=== PATIENT | male | born 1965 | race Caucasian/White ===

== ENCOUNTER → 2016-10-27 | Outpatient (CLI) | payer MEDICAID ==
[2016-10-27 10:33] LABS: ALT 39 U/L (21-72); AST 25 U/L (17-59); Alkaline Phosphatase 55 U/L (38-126); Anion Gap 10 mmol/L; Blood Urea Nitrogen 28 mg/dL (9-20); Calcium 9.6 mg/dL (8.4-10.2); Carbon Dioxide 26 mmol/L (22-30); Chloride 106 mmol/L (98-107); Cholesterol 259 mg/dL (<200); Glucose 94 mg/dL (74-99); HDL Cholesterol 53 mg/dL (40-60); Non-African American GFR(MDRD) >60 (>60 ml/min/1.73 sqM); Potassium 4.7 mmol/L (3.5-5.1); Sodium 142 mmol/L (137-145); Total Bilirubin 0.8 mg/dL (0.2-1.3); Total Protein 7.3 g/dL (6.3-8.2); Triglycerides 123 mg/dL (<150)
[2016-10-27 13:52] LABS: Hemoglobin A1C 5.6 % (4.2-6.1)
== END ==
LOC: LABWHC1 07:33
PROVIDERS: ATTEND Family Medicine
DX: Z00.00 Encounter for general adult medical examination without abnormal findings (principal); Z13.1 Encounter for screening for diabetes mellitus; Z13.220 Encounter for screening for lipoid disorders; Z13.29 Encounter for screening for other suspected endocrine disorder; Z12.5 Encounter for screening for malignant neoplasm of prostate
CPT/HCPCS: 84439; 80061; 80053; 83036; 84443; 36415; G0103

== ENCOUNTER → 2017-10-19 | Outpatient (CLI) | payer MEDICAID ==
[2017-10-19 08:18] LABS: HCT 43.4 % (39.0-53.0); HGB 14.4 gm/dL (13.0-17.5); MCHC 33.2 g/dL (31.0-37.0); MCV 90.6 fL (80.0-100.0); Mean Platelet Volume 6.5; Platelet Count 222 k/uL (150-450); RBC 4.79 m/uL (4.30-5.90); RDW 13.2 % (11.5-15.5); WBC 5.3 k/uL (3.8-10.6)
[2017-10-19 08:45] LABS: ALT 29 U/L (21-72); AST 18 U/L (17-59); Albumin 4.4 g/dL (3.5-5.0); Alkaline Phosphatase 55 U/L (38-126); Anion Gap 10 mmol/L; Blood Urea Nitrogen 20 mg/dL (9-20); Calcium 9.3 mg/dL (8.4-10.2); Carbon Dioxide 26 mmol/L (22-30); Chloride 106 mmol/L (98-107); Cholesterol 227 mg/dL (<200); Glucose 100 mg/dL (74-99); HDL Cholesterol 44 mg/dL (40-60); LDL Cholesterol,Calculated 159 mg/dL (0-99); Potassium 4.6 mmol/L (3.5-5.1); Sodium 142 mmol/L (137-145); Total Bilirubin 0.6 mg/dL (0.2-1.3); Total Protein 7.1 g/dL (6.3-8.2); Triglycerides 122 mg/dL (<150)
== END | disposition home or self-care (01) ==
LOC: LABWHC1 07:55
PROVIDERS: ATTEND Internal Medicine
DX: Z00.00 Encounter for general adult medical examination without abnormal findings (principal); E78.00 Pure hypercholesterolemia, unspecified; E66.9 Obesity, unspecified; Z12.11 Encounter for screening for malignant neoplasm of colon
CPT/HCPCS: 36415; 80053; 80061; 84443; 85027

== ENCOUNTER 2017-11-19 23:22 | Emergency (ER) | payer MEDICAID ==
[2017-11-19 23:25] VITALS: RESP 18
[2017-11-19] MEDS ORDERED: PROPARACAINE 0.5% OPHTH DROPS 15 ML BTL LEFT EYE STA (23:29)
--- NOTE | 2017-11-20 00:16 | ED ---
Eye Problem HPI - General Chief complaint: Eye Problems Stated complaint: FB in eye Time Seen by Provider: 11/19/17 23:29 Source: patient, RN notes reviewed Mode of arrival: ambulatory Limitations: no limitations - History of Present Illness Initial comments: This is a 52-year-old male who presents to the emergency department with chief complaint of foreign body in the left eye. Patient states that at noon today he had a haircut. He states that he also had his eyebrows trimmed. Immediately after having his eyebrows trimmed, he felt a foreign body sensation in his left eye. He admits to associated blurriness but no vision loss. He reports foreign body sensation, tearing and states that his eye feels "scratchy. " He states that she has been unable to sleep due to the discomfort. Denies any significant pain with or without movement of the eye. Has no other complaints. 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 Denies weakness or vision loss. Denies fevers or chills, chest pain or shortness of breath, abdominal pain, nausea or vomiting, headache or dizziness. Denies blunt trauma. - Related Data Home Medications Medication Instructions Recorded Confirmed Aspirin 650 mg PO Q8H PRN 11/19/17 11/19/17 Allergies Allergy/AdvReac Type Severity Reaction Status Date / Time No Known Allergies Allergy Verified 11/19/17 23:34 Review of Systems ROS Statement: Those systems with pertinent positive or pertinent negative responses have been documented in the HPI. ROS Other: All systems not noted in ROS Statement are negative. Past Medical History Past Medical History: No Reported History History of Any Multi-Drug Resistant Organisms: None Reported Past Surgical History: No Surgical Hx Reported Additional Past Surgical History / Comment(s): tear duct tube Past Psychological History: No Psychological Hx Reported Smoking Status: Never smoker Past Alcohol Use History: Occasional Past Drug Use History: None Reported General Exam - General Exam Comments Initial Comments: General: Awake and alert, well-developed; in no apparent distress. HEENT: Head atraumatic, normocephalic. Right pupil is round and reactive to light. Left pupil is fixed, dilated and unreactive to light. Left conjunctiva is injected. Extraocular movements intact. No pain reported. On fluorescein staining, no foreign body, abrasions or ulcers noted. No foreign body noted with retraction of superior and inferior eyelids. Oropharynx moist without erythema or exudate. No facial drooping or weakness. Neck: Supple. Normal ROM. Cardiovascular: Regular rate and rhythm. No murmurs, rubs or gallops. Chest symmetrical. Respiratory: Lungs clear to auscultation bilaterally. No wheezes, rales or rhonchi. Normal respiratory effort with no use of accessory muscles. Musculoskeletal: Normal ROM, no tenderness bilateral upper and lower extremities. Ambulating normally. Skin: [place], warm and dry without rashes or lesions. Neurological: Alert and oriented x3. CN II-XII grossly intact. Speech is fluent and answers are appropriate. No focal neuro deficits. Psychiatric: Normal mood and affect. No overt signs of depression or anxiety noted. Limitations: no limitations Course Vital Signs 11/19/17 23:23 Temperature 97.3 F L Pulse Rate 63 Respiratory 18 Rate Blood Pressure 130/69 O2 Sat by Pulse 99 Oximetry Medical Decision Making - Medical Decision Making This is a 52-year-old male who presented to the emergency department with chief complaint of foreign body in the left eye. Patient stated he received a haircut at around noon yesterday and immediately felt a foreign body sensation in his left eye. He reported that his eye felt "scratchy," he had tearing, mild blurred vision and discomfort. 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 Patient did not bring these medications to the emergency department and is unsure of the ingredients. On physical assessment, patient's left conjunctiva is erythematous, the pupil is dilated and fixed and is unreactive to light. On fluorescein staining, no abrasions or ulcers are noted. No foreign body noted within the cornea or under superior or inferior eyelids. Intraocular pressure is 9 bilaterally. This case was discussed with resident, Dr. Singh as well as my attending physician Dr. Read. Both physicians evaluated the patient. Patient denied any headache or dizziness, weakness or significant pain of the eye. Denied vision loss. No ptosis noted and cranial nerves are fully intact. No focal neuro deficits. Patient denied any other symptoms and had no other complaints other than the foreign body sensation in his eye. My attending physician, Dr. Read was in contact with Dr. Resendez, pharmacist helper who recommended follow-up with him in the morning. I relayed this recommendation to patient who is very agitated because he waited a long time in the emergency department and has to work at 4 AM. He stated that he has his own doctor that he will follow-up with but his job is more of a priority than his health. Patient's vitals are stable and he is in no acute distress. He is discharged home at this time. Strongly advised follow-up with Dr. Resendez in the morning. All questions answered. Disposition Clinical Impression: Persistent mydriasis Disposition: HOME SELF-CARE Condition: Good Instructions: Eye Foreign Body (ED) Additional Instructions: Please follow-up with Dr. Resendez, pharmacist helper, tomorrow morning. Please follow up with primary care provider within 1-2 days. Return to emergency department if symptoms should worsen or any concerns arise. Referrals: None,Stated [Primary Care Provider] - 1-2 days Neil Resendez MD [STAFF PHYSICIAN] - 1-2 days Time of Disposition: 01:09
[2017-11-20 01:19] VITALS: BP 138/74; PULSE 60; TEMP 96.9
== END 2017-11-20 01:19 | disposition home or self-care (01) ==
LOC: EC 23:22
DX: H57.04 Mydriasis (principal)
CPT/HCPCS: 99283

== ENCOUNTER → 2018-10-18 | Outpatient (CLI) | payer MEDICAID ==
[2018-10-18 09:50] LABS: Basophils % (A) 1 %; Eosinophils # (A) 0.1 k/uL (0-0.7); Eosinophils % (A) 4 %; HCT 43.5 % (39.0-53.0); HGB 14.4 gm/dL (13.0-17.5); Lymphocytes # (A) 1.3 k/uL (1.0-4.8); Lymphocytes % (A) 35 %; MCH 29.9 pg (25.0-35.0); MCHC 33.1 g/dL (31.0-37.0); MCV 90.3 fL (80.0-100.0); Mean Platelet Volume 6.5; Monocytes # (A) 0.2 k/uL (0-1.0); Monocytes % (A) 5 %; Neutrophils # (A) 1.9 k/uL (1.3-7.7); Neutrophils % (A) 54 %; Platelet Count 232 k/uL (150-450); RBC 4.82 m/uL (4.30-5.90); RDW 13.6 % (11.5-15.5); WBC 3.6 k/uL (3.8-10.6)
[2018-10-18 17:33] LABS: Anion Gap 6.3 mmol/L (4.00-12.00); Calcium 9.4 mg/dL (8.7-10.3); Carbon Dioxide 28.7 mmol/L (21.6-31.8); Potassium 4.8 mmol/L (3.5-5.5)
== END ==
LOC: LABWHC1 09:11
PROVIDERS: ATTEND Family Medicine
DX: Z00.00 Encounter for general adult medical examination without abnormal findings (principal)
CPT/HCPCS: 36415; 80048; 80061; 84153; 84450; 84460; 85025

== ENCOUNTER → 2020-04-08 | Outpatient (CLI) | payer MEDICAID, OTHER ==
--- NOTE | 2020-04-08 13:46 | XR ---
EXAMINATION TYPE: XR chest 2V DATE OF EXAM: 04/08/2020 COMPARISON: NONE HISTORY: Shortness of breath TECHNIQUE: Frontal and lateral views of the chest are obtained. FINDINGS: Scattered senescent parenchymal changes noted. Hyperinflation compatible with COPD. No evidence for infiltrate. No evidence for atelectasis. Heart size is stable. Mediastinal structures are stable and grossly unremarkable. No evidence for hilar prominence. Degenerative changes dorsal spine. IMPRESSION: 1. No evidence for acute pulmonary disease.
[2020-04-08 14:35] LABS: HCT 43.7 % (39.0-53.0); HGB 14.6 gm/dL (13.0-17.5); MCHC 33.4 g/dL (31.0-37.0); MCV 89.8 fL (80.0-100.0); Mean Platelet Volume 7.2; Platelet Count 247 k/uL (150-450); RBC 4.86 m/uL (4.30-5.90); RDW 13.4 % (11.5-15.5); WBC 4.7 k/uL (3.8-10.6)
[2020-04-08 14:39] LABS: Appearance,Urine Clear (Clear); Bilirubin,Urine Negative (Negative); Blood,Urine Negative (Negative); Color,Urine Light Yellow; Glucose,Urine (UA) Negative (Negative); Ketones,Urine 1+ (Negative); Leukocyte Esterase,Urine Negative (Negative); Nitrite,Urine Negative (Negative); PH, Urine 5.5 (5.0-8.0); Protein,Urine Negative (Negative); Specific Gravity,Urine 1.007 (1.001-1.035); Urobilinogen,Urine <2.0 mg/dL (<2.0)
[2020-04-08 19:55] LABS: African American GFR (CKD) 97.1 (60.0-200.0); Albumin/Globulin Ratio 2.27 (1.60-3.17); Anion Gap 10.8 mmol/L (4.00-12.00); Calcium 10.1 mg/dL (8.7-10.3); Carbon Dioxide 25.2 mmol/L (21.6-31.8); Globulin 2.2 g/dL (1.6-3.3); Non-African American GFR(CKD) 83.8 (60.0-200.0); Potassium 4.2 mmol/L (3.5-5.5); Total Bilirubin 0.8 mg/dL (0.3-1.2); Total Protein 7.2 g/dL (6.2-8.2)
[2020-04-08 23:53] LABS: Partial Thromboplastin Time 30.3 sec (24.7-29.9); Prothrombin Time 10.7 sec (9.9-11.9)
== END | disposition home or self-care (01) ==
LOC: LABWHC1 13:24
PROVIDERS: ATTEND Orthopaedic Surgery Orthopaedic Surgery of the Spine
DX: M51.16 Intervertebral disc disorders with radiculopathy, lumbar region (principal); M51.26 Other intervertebral disc displacement, lumbar region; M51.36 Other intervertebral disc degeneration, lumbar region; M79.10 Myalgia, unspecified site; M79.605 Pain in left leg
CPT/HCPCS: 36415; 71046; 80053; 81003; 85027; 85610; 85730; 93005

== ENCOUNTER → 2021-06-02 | Outpatient (CLI) | payer OTHER ==
--- NOTE | 2021-06-02 10:26 | XR ---
EXAMINATION TYPE: XR lumbar spine with bend/flex DATE OF EXAM: 06/02/2021 COMPARISON: None HISTORY: Low back pain TECHNIQUE: 5V lumbar spine supplemented with flexion and extension views. FINDINGS: There appear to be 6 lumbar type vertebral bodies. There appears to be lumbarization of S1. No spondylolytic defects are evident. Mild diffuse facet changes may be present. Spondylosis is pres ent. Vertebral body heights are preserved. L2-3: There appears to be narrowing of the disc height with vacuum disc phenomenon. Posterior disc space narrowing is present L3-4 L4-5 and L5-S1. Flexion and extension views are obtained. The vertebral body alignment appears preserved through flex ion and extension. IMPRESSION: 1. 6 lumbar type vertebral bodies. S1 may be transitional. Plain film correlation is recommended kayleen or to surgery. 2. Degenerative disc change L2-3 with vacuum disc phenomenon and loss of disc height. Milder posterio r disc degenerative changes are present through the mid and lower lumbar spine.
== END | disposition home or self-care (01) ==
LOC: RADXRMAIN 09:38
PROVIDERS: ATTEND Family Medicine
DX: M47.816 Spondylosis without myelopathy or radiculopathy, lumbar region (principal)
CPT/HCPCS: 72114

== ENCOUNTER → 2021-07-21 | Outpatient (CLI) | payer OTHER ==
--- NOTE | 2021-07-21 10:10 | MR ---
EXAMINATION TYPE: MR lumbar spine wo/w con DATE OF EXAM: 07/21/2021 COMPARISON: Lumbar spine x-ray June 02, 2021 HISTORY: Lumbago w/sciatica TECHNIQUE: Multiplanar, multisequence images of the lumbar spine is performed without and with IV contrast, util izing 10 mL intravenous Gadavist FINDINGS: Sagittal images of the lumbar spine show vertebral body heights to appear satisfactory. Sli ght multilevel spondylolisthesis or grade 1 retrolisthesis throughout the lumbar spine. Multilevel di sc desiccation. Moderate disc space narrowing L1-L2 level with heterogeneous Modic type II endplate c hanges. Mild to moderate multilevel anterior spurring greatest at L1 -L2 levels. No suspicious postco ntrast enhancement. Axial images at T12-L1 level show mild broad disc bulge mildly effacing the anterior thecal sac. Ther e are mild facet degenerative changes bilaterally. Patent bilateral neural foramina. Axial images at the L1-L2 level show mild to moderate broad disc bulge and zbix-eh-ulpstcgp facet deg enerative changes bilaterally. There is moderate right and mild left-sided anterior inferior neural f oraminal narrowing. Axial images at the L2-L3 level show cnyq-io-zzcehgma facet arthropathy bilaterally. There is mild br oad disc bulge mildly effacing the anterior thecal sac. There is tpmo-jb-bldzvdzw bilateral anterior inferior neural foraminal narrowing. Axial images at the L3-L4 level show mild to moderate broad disc bulge. There is some effacement of t he anterior thecal sac. There is fovs-cq-ttmjyvfr bilateral anterior inferior neural foraminal narrow ing. Axial images at the L4-L5 level show mild to moderate broad disc bulge and mild facet arthropathy leopoldo aterally. There is moderate left-sided and mild right-sided neural foraminal narrowing. Axial images at the L5-S1 level show hutw-yz-rdbeubvf facet arthropathy bilaterally. Patent bilateral neural foramina. No suspicious retroperitoneal findings. Paraspinal muscle bulk is preserved. IMPRESSION: Changing of the lumbar spine with sryc-cq-emstfloo multilevel degenerative changes as det tali above.
== END | disposition home or self-care (01) ==
LOC: RADMRIMAIN 07:16
PROVIDERS: ATTEND Family Medicine
DX: M51.16 Intervertebral disc disorders with radiculopathy, lumbar region (principal); M47.27 Other spondylosis with radiculopathy, lumbosacral region; M99.73 Connective tissue and disc stenosis of intervertebral foramina of lumbar region
CPT/HCPCS: 72158; A9585

== ENCOUNTER → 2021-10-16 | Outpatient (CLI) | payer OTHER ==
[2021-10-16 08:10] VITALS: BP 140/99; PULSE 59; RESP 18; TEMP 98.2
--- NOTE | 2021-10-16 08:34 | P.CON ---
Consult Note - . Consult date: 10/16/21 Assessment/Plan:: HISTORY OF PRESENT ILLNESS: 56 -year-old male as a referral from Dr. Martinez presents today with lower back pain due to DDD, retrolisthesis, bilateral neuroforaminal stenoses and facet arthropathy for evaluation. Patient states he has 8 out of 10 lower back pain, centrally located in the lumbar spine, dull, achy, waxes and wanes in intensity with activity with occasional radiation to the left lower extremity with accompanying numbness. Pain is provoked with bending, heavy lifting. Pain is relieved by medications, topical Biofreeze gel, heat, physical therapy in March 2020, chiropractic treatments every 2 weeks, home daily exercise regimen and sleeping. Past Medical History: No Reported History Past Surgical History: Lumbar Laminectomy, Tear duct tube incision Social History: No Tobacco use. Occassional ETOH use. No illicit drug use Family History: Denies All: NKDA Meds: See list REVIEW OF ORGAN SYSTEMS: CONSTITUTIONAL: No fevers or chills. No recent weight loss. HEENT: No visual acuity loss, eye pain, difficulties with hearing. No nosebleeds. No difficulty swallowing. RESPIRATORY: Denies any troubles with breathing or dyspnea on exertion. CARDIOVASCULAR: Denies any chest pain, palpitations, or recent heart attacks. GASTROINTESTINAL: Denies fatty food intolerance. Has change in bowel habits and gas bloat. GENITOURINARY: Denies any blood in urine. Has increased urinary frequency. NEUROLOGICAL: + numbness and tingling along the distal extremities. No seizure disorders or headaches. MUSCULOSKELETAL: + back pain SKIN: No skin cancer. No rash. PSYCHIATRIC: Denies current depression or suicidal thoughts. ENDOCRINE: Denies current thyroid disorders. Denies any blood sugar glucose intolerance. HEME/LYMPHATIC: Denies any lumps and bumps around the neck. History of deep venous thrombosis. ALLERGY/IMMUNOLOGY: No immunoglobulin therapy. No immune deficiencies. BREAST: Denies current breast lumps, pain or nipple discharge. Physical Examinations : Constitutional : Cooperative , not in acute distress . HEENT: Neck supple. No Lymphadenopathy. Normal thyroid size . Eyes no ptosis , no icterus, no photophobia . Hearing intact. Normal oropharynx. No Thrush. Respiratory : Chest clear to auscultations bilaterally. No wheezing. No rhonchi. Cardiovascular : Regular rate and rhythm , S1 / S2. No S3 . No S4. Gastrointestinal : Abdomen soft. No tenderness. Bowel sounds x 4. No organomegaly . Genitourinary : Deferred. Neurologic : Cranial nerve II to XII intact. No focal neurological deficits. Psychiatric : alert & oriented x 3. Matching mood & appropriate affect. Judgment & insight intact. Lymphatic No Lymphadenopathy. Musculoskeletal : Cervical Spine Motor strength in the deltoid and biceps: Normal right side. Normal Left side Motor strength biceps and the wrist extensors: Normal right side . Normal left side Motor strength in the triceps muscle: Normal right side. Normal left side Deep tendon reflexes: Normal at the biceps. Normal at Brachioradialis. Normal at triceps Cervical facet loading test: positive bilaterally Spurling test: positive bilaterally Neck distraction test: positive bilaterally Vanita sign: positive bilaterally Lumbar spine Well healed 2 1/2" vertical incisional scar Motor strength lower extremities ,thigh and legs 5/5 Right side , 5/5 Left side Deep tendon reflexes : Normal Knee Jerk. Normal Ankle Jerk Vertebral body tenderness over L4, L5 Lumbar facet Loading Test: positive Right / positive Left Range of motion of the lumbar spine Flexion 30 degrees, extension 10 degrees Straight Leg Raise test: Left/ Right positive at 30 degree Kasey test: positive right / positive left. Severe tenderness over the Sacroiliac joint on the Right / Left sides Gaenslen test: positive bilaterally Seated flexion test: positive bilaterally. Assessment/ Plan : Recommendation LESI L4-L5 May need a series of 3, within a six-month period, for optimal pain relief May consider additional procedures in the future including facet blocks of the medial branches and or RFA if indicated Risks, benefits of procedure discussed and patient verbalized understanding. Denies aspirin or anti- coagulant use. Has history of diabetes. All questions answered. I have spent greater than 50 minutes on patient care today. Dr Irizarry was available by phone for the evaluation of this patient. The time was used to review the medical records including relevant urine studies and Prescription history (MAPs), review of the available imaging, evaluation and examination of the patient, coordination of care with the medical staff and if applicable referring physicians, as well as creation of the medical record PQRS Measure Charge Sheet Mode of Arrival: Ambulatory - Pain Location Lower Back Non-Pharmacological Interventions: Chiropractic Treatment, Heat, Home Exercise, Physical Therapy, Position/Reposition, Stretching Pharmacological Interventions: Topical Medication PQRS Narrative: Smoking Status Never smoker Blood Pressure 140/99 Pain Intensity [Lower Back] 8 Scale Used Numeric (1 - 10) Hx Alcohol Use (MH) Yes Home Medications: Ambulatory Orders No Known Home Medications 10/13/21
== END ==
LOC: PNWHC3 07:42
PROVIDERS: ATTEND Physician Assistant Medical
DX: M54.50 Low back pain, unspecified (principal)
CPT/HCPCS: 99211

== ENCOUNTER → 2021-10-28 | Outpatient (CLI) | payer OTHER ==
[2021-10-28 11:23] LABS: Basophils # (A) 0.04 X 10*3/uL (0.00-0.10); Eosinophils # (A) 0.17 X 10*3/uL (0.04-0.35); Eosinophils % (A) 4.4 %; HCT 45.7 % (39.6-50.0); HGB 14.9 g/dL (13.0-17.0); Immature Grans, Automated 0.3 %; Lymphocytes # (A) 1.49 X 10*3/uL (0.90-5.00); Lymphocytes % (A) 38.3 %; MCH 29.7 pg (27.0-32.0); MCHC 32.6 g/dL (32.0-37.0); MCV 91.2 fL (80.0-97.0); Mean Platelet Volume 9.6 fL (9.5-12.2); Monocytes # (A) 0.38 X 10*3/uL (0.20-1.00); Monocytes % (A) 9.8 %; NRBC Per 100 WBC 0 /100 WBCS (0.0-0.0); Neutrophils % (A) 46.2 %; Platelet Count 245 X 10*3/uL (140-440); RBC 5.01 X 10*6/uL (4.40-5.60); RDW 13.2 % (11.5-14.5); WBC 3.89 X 10*3/uL (4.50-10.00)
[2021-10-28 11:46] LABS: ALT 31 U/L (10-49); AST 25 U/L (14-35); African American GFR (CKD) 96.4 (60.0-200.0); Albumin 4.7 g/dL (3.8-4.9); Albumin/Globulin Ratio 2.04 (1.60-3.17); Alkaline Phosphatase 59 U/L (41-126); Blood Urea Nitrogen 13.5 mg/dL (9.0-27.0); Calcium 9.6 mg/dL (8.7-10.3); Carbon Dioxide 23.9 mmol/L (20.0-27.5); Chloride 103 mmol/L (96-109); Chol/HDL Ratio 6.33 Ratio; Globulin 2.3 g/dL (1.6-3.3); Glucose 96 mg/dL (70-110); LDL Cholesterol,Calculated 218.5 mg/dL (0.0-131.0); Non-African American GFR(CKD) 83.2 (60.0-200.0); Potassium 4.7 mmol/L (3.5-5.5); Sodium 138 mmol/L (135-145)
== END | disposition home or self-care (01) ==
LOC: LABWHC1 09:02
PROVIDERS: ATTEND Family Medicine
DX: M54.42 Lumbago with sciatica, left side (principal); Z98.890 Other specified postprocedural states; H93.13 Tinnitus, bilateral; G89.29 Other chronic pain; R06.02 Shortness of breath
CPT/HCPCS: 36415; 80053; 80061; 84153; 85025

== ENCOUNTER 2021-11-30 06:57 | Day surgery (SDC) | payer OTHER ==
[2021-11-29 10:52] VITALS: BMI 34.2
[2021-11-30 07:17] VITALS: RESP 16; TEMP 97.2
[2021-11-30] MEDS: LACTATED RINGERS 1,000 ML IV SCH ×2 (07:18→07:49)
[2021-11-30] MEDS ORDERED: MIDAZOLAM 2 MG/2 ML VIAL ONE (07:51)
[2021-11-30] MEDS ORDERED: fentaNYL (PF) 50 MCG/ML 2 ML AMP ONE (07:51)
[2021-11-30] MEDS ORDERED: methylPREDNISolone ACETATE 40 MG/ML 1 ML VIAL ONE (07:51)
[2021-11-30] MEDS ORDERED: IOPAMIDOL M200 10 ML VIAL ONE (07:51)
--- NOTE | 2021-11-30 08:03 | P.PCN ---
Date of Procedure: 11/30/21 Description of Procedure: Procedure: 1. L4-L5 Epidural steroid injection under fluoroscopic guidance # 1/ , 2. Lumbar epidurogram PREOPERATIVE DIAGNOSIS: Lumbar degenerative disc disease, and Lumbar radiculopathy. POSTOPERATIVE DIAGNOSIS: Lumbar degenerative disc disease, and Lumbar radiculopathy. SURGEON: Pa Garcia ANESTHESIA: Local with 1% lidocaine, and IV sedation : Versed 2 mg, and fentanyl 100 g EBL: None. Specimen removed: None Fluoroscopic image: saved to electronic medical records PROCEDURE INDICATION: The patient had history of Lumbar degenerative disc disease and Lumbar radiculopathy. Failed to conservative therapy. Presented for epidural steroid injection. PROCEDURE DESCRIPTION: The patient was seen and identified in the preoperative area. Risks, benefits, complications, and alternatives were discussed with the patient. The patient agreed to proceed with the procedure and signed the consent. IV was started, and vital signs were stable. Patient was taken to the procedure area, and time out was completed. The patient was placed in the prone position on procedure table and a pillow was placed under the abdomen to reduce lumbar lordosis. The lumbosacral area was prepped and draped in the usual sterile fashion. Critical pause was taken. Vital signs were closely monitored during the procedure. Using anterior-posterior fluoroscopy, the L4-L5 interlaminar space was identified, and skin and deeper tissues were localized with 1% lidocaine. Using anterior-posterior fluoroscopy, lateral fluoroscopy, and qeix-kq-kibselssds technique, a 20 gauge 3.5 Tuohy epidural needle entered the epidural space. After negative aspiration of CSF and blood with no paresthesias, 2 ml of [id number] contrast dye was injected and an excellent epidurogram was seen. Again after negative aspiration of CSF and blood with no paresthesias, 10 mL of block solution was injected into the epidural space. Block solution contained 80 mg of Depo-Medrol, and 9 mL of preservative-free normal saline. Needle was withdrawn intact, skin was cleansed, and bandages were applied. COMPLICATIONS: None. DISPOSITION / PLANS: The patient was placed in a supine position and transferred to the recovery area in a stable condition for observation. Patient was discharged from the recovery room after meeting discharge criteria. Home discharge instructions given to the patient by the staff. The patient was reexamined prior to discharge. The patient will schedule a follow up in the clinic in 4 weeks.
[2021-11-30] MEDS ORDERED: IV FLUID CONTINUATION 1,000 ML IV ONE (08:44)
[2021-11-30 08:58] VITALS: BP 136/89; PULSE 95
--- NOTE | 2021-11-30 12:58 | FL ---
EXAMINATION TYPE: FL guided pain mgmt statistic DATE OF EXAM: 11/30/2021 CLINICAL HISTORY: Lumbar epidural injection TECHNIQUE: Fluoroscopic-guided lumbar epidural injection COMPARISON: MRI dated 07/21/2021 FINDINGS: Fluoroscopic guidance was provided during the procedure. A total of 3 seconds of fluorosco pic time was utilized during the procedure and 2 spot images were acquired. IMPRESSION: As Above.
== END 2021-11-30 08:45 | disposition home or self-care (01) ==
LOC: ORPAIN 06:57
DX: M51.16 Intervertebral disc disorders with radiculopathy, lumbar region (principal); M19.90 Unspecified osteoarthritis, unspecified site; Z79.899 Other long term (current) drug therapy; Z98.890 Other specified postprocedural states
CPT/HCPCS: 62323; J2250; J1030; J3010; Q9966

== ENCOUNTER → 2021-12-25 | Outpatient (CLI) | payer OTHER ==
[2021-12-25 08:18] VITALS: BP 155/93; RESP 18; TEMP 97.9
--- NOTE | 2021-12-25 08:19 | P.PN ---
Subjective Progress Note Date: 12/25/21 Principal diagnosis: A 56 yr old male with a history of severe and chronic low back pain secondary to lumbar degenerative disc diseases and lumbar spondylosis with facet arthropathy presents today for evaluation status post LESI L4-L5 #1. He states he experienced 80% pain relief for 2 weeks status post procedure. Pain level is currently at 3 out of 10 in intensity, localized in the lower half of the lumbar spine, deep, achy in character with radiation of pain down the left lower extremity and accompanying occasional numbness of the toes. Pain is provoked by standing. Pain is alleviated with topical Biofreeze gel, injections, physical therapy which he completed November 2021, daily home exercise regimen, massage therapy integrated with PT and rest. Interventional pain procedures completed include LESI L4-L5 #1 Patient is currently on denies Patient denies any side effects of the medication(s), denies excessive drowsiness or sleepiness, denies suicidal ideation and reports that the current pain medication is helping to control the pain and improve activities of daily living. Patient denies any motor or sensory deficits. Patient denies any fever or night sweats, denies any change in the bowel movements or urination. Physical Examination: -Constitutional: Cooperative. Not in acute distress . -HEENT: Neck is supple. No lymphadenopathy. No thyromegaly. Normal thyroid size. Eyes: No ptosis , no icterus, no photophobia. ENT: No auditory deficits. Normal oropharynx. No Thrush. - Respiratory: Chest clear to auscultations bilaterally. No wheezing. No rhonchi. - Cardiovascular: Regular rate and rhythm. S1 / S2 , no S3 , no S4. - Gastrointestinal: Abdomen soft no tenderness. Bowel sounds positive in all four quadrants. No organomegaly. - Genitourinary: Deferred. - Neurologic: Cranial nerve II to XII intact. No focal neurological deficits. - Psychatric: Alert & oriented x 3. Matching mood & appropriate affect. Judgment and insight intact. - Lymphatic: No Lymphadenopathy. - Musculoskeletal: Cervical spine: Muscle bulk/ tone/ strength in the bilateral upper extremities normal. Facet loading test cervical area positive. Lumbar spine: Motor bulk/ tone/ strength lower extremities , thigh and legs : 5/5 Deep tendon reflexes : Normal Knee Jerk. Normal Ankle Jerk . Vertebral body tenderness to palpation over L4 Lumbar Facet Loading Test positive Straight Leg Raise: positive at 30 degrees right side/ left side Gaenslen's Test positive Sacral spine : Severe tenderness over the Sacroiliac joint: right side / left side Range of motion: Flexion of the lumbar spine <60 degrees Range of motion: Extension of the lumbar spine <20 degrees Gaenslen's Test positive Kasey test: positive right side / left side Assessment and plan: Chronic low back pain secondary to lumbar degenerative disc disease , lumbar spondylosis with facet arthropathy without myelopathy Recommendation of HERBI L4-L5 #2. Risks, benefits of procedure discussed and patient verbalized understanding. Denies anticoagulant use her medical history of diabetes. We will fill a prescription for Lidoderm 5% patches. Use as directed. Side effects and adverse reactions discussed and patient acknowledged understanding. All patient questions answered MAPS reviewed and it was appropriate. I have spent 31 minutes on patient care today. Dr Irizarry was available by phone for the evaluation of this patient. The time was used to review the medical records including relevant urine studies and Prescription history (MAPs), review of the available imaging, evaluation and examination of the patient, coordination of care with the medical staff and if applicable referring physicians, as well as creation of the medical record PQRS Measure Charge Sheet Mode of Arrival: Ambulatory PQRS Narrative: Smoking Status Never smoker Blood Pressure 155/93 Pain Intensity [Bilateral 8 Lower Back] Scale Used Numeric (1 - 10) Hx Alcohol Use (MH) Yes Home Medications: Ambulatory Orders Atorvastatin [Lipitor] 20 mg PO DAILY 11/29/21 Lidocaine 5% Patch [Lidoderm] 1 patch TOPICAL DAILY 30 Days #30 patch 12/25/21
[2021-12-25 08:32] VITALS: PULSE 70
== END ==
LOC: PNWHC3 07:19
PROVIDERS: ATTEND Specialist
DX: M51.36 Other intervertebral disc degeneration, lumbar region (principal); M47.816 Spondylosis without myelopathy or radiculopathy, lumbar region; G89.29 Other chronic pain
CPT/HCPCS: 99211

== ENCOUNTER 2022-02-01 06:30 | Day surgery (SDC) | payer OTHER ==
[2022-02-01] MEDS ORDERED: LACTATED RINGERS 1,000 ML IV SCH (06:43)
[2022-02-01] MEDS ORDERED: LIDOCAINE 1% (10MG/ML) FOR IV START INTRADERMA PRN (06:43)
[2022-02-01 06:48] VITALS: TEMP 98.3
[2022-02-01] MEDS ORDERED: fentaNYL (PF) 50 MCG/ML 2 ML AMP ONE (07:18)
[2022-02-01] MEDS ORDERED: MIDAZOLAM 2 MG/2 ML VIAL ONE (07:18)
[2022-02-01] MEDS ORDERED: methylPREDNISolone ACETATE 80 MG/ML 1 ML VIAL ONE (07:18)
[2022-02-01] MEDS ORDERED: IOPAMIDOL M200 10 ML VIAL ONE (07:18)
[2022-02-01] MEDS ORDERED: IV FLUID CONTINUATION 1,000 ML IV ONE (07:34)
--- NOTE | 2022-02-01 07:34 | P.PCN ---
Date of Procedure: 02/01/22 Procedure(s) Performed: PREOPERATIVE DIAGNOSIS: 1- Lumbar Degenerative Disc Diseases 2-Lumbar spondylosis with Facet arthropathy without myelopathy. 3-lumbar radiculopathy POSTOPERATIVE DIAGNOSIS: Same as preop diagnosis. PROCEDURE 1. Lumbar epidural steroid injection under fluoroscopic guidance at the L4-5 level. (Fluoroscopy imaging was available in radiology department) 2. Lumbar epidurogram.( 2 nd ) ANESTHESIA: Local with 1% lidocaine 3 ml and , moderate sedation with intravenous Versed 2 mg ,and fentanyle 100 Mcg EBL: Minimal PROCEDURE INDICATION: The patient with low back pain and radiculitis symptoms unresponsive to conservative treatment. Fluoroscopy was used to optimize visualization of the needle placement and to maximize safety. PROCEDURE DESCRIPTION / TECHNIQUE: The patient was seen and identified in the preoperative area. Risks, benefits, complications including but not limited to infections ,bleeding ,allergic reaction to the medications ,nerve damage and not complete pain releife , and alternatives were discussed with the patient. The patient agreed to proceed with the procedure and signed the consent. IV was started, and vital signs were stable. Patient was taken to the OR and time out was completed. The patient was placed in the prone position on procedure table and a pillow was placed under the abdomen to reduce lumbar lordosis. The lumbosacral area was prepped and draped in the usual sterile fashion.ere closely monitored during the procedure. Conscious sedation was used during the procedure to decrease patients anxiety. Vital signs was monitered during the entire procedure. Using anterior-posterior fluoroscopy, the L4-5 interlaminar space was identified and the skin over this site was marked and then infiltrated with 1% lidocaine subcutaneously. Subsequently, a 20-gauge Tuohy epidural needle was inserted and advanced toward the epidural space using the ``Loss of resistance technique and guided by AP and lateral fluoroscopy. The correct needle position in the epidural space was verified with the injection of 2 mL of the water soluble contrast dye Isovue 200 contrast and observing an excellent epidurogram with the epidural spread of the dye, after negative aspiration for blood and CSF and in the absence of paresthesias. Again after negative aspiration, a 6 ml mixture containing 80 mg of Depo-medrol , and 2 ml of preservative free Normal Saline, and 2 ml of preservative free lidocaine 1% solution was injected and a washout of epidurogram was seen. Needle was withdrawn intact, skin was cleansed, and bandages were applied. COMPLICATIONS: None DISPOSITION / PLANS: The patient was placed in a supine position and transferred to the recovery area in a stable condition for observation. There was no evidence of lower extremity motor or sensory deficit after the procedure. Patient was discharged from the recovery room after meeting discharge criteria. Home discharge instructions were given to the patient by the staff. The patient was reexamined prior to discharge. The patient will schedule a follow up in the clinic in 2-4 weeks.
[2022-02-01 07:50] VITALS: BP 125/75; PULSE 74; RESP 17
--- NOTE | 2022-02-01 08:23 | FL ---
Fluoroscopy HISTORY: Pain 4 seconds fluoroscopy time supplied to the referring clinician. 1 intraoperative C-arm images docume nt the procedure. See dictated report from anesthesia.
== END 2022-02-01 08:05 | disposition home or self-care (01) ==
LOC: ORPAIN 06:30
PROVIDERS: ATTEND Specialist
DX: M51.16 Intervertebral disc disorders with radiculopathy, lumbar region (principal); M47.26 Other spondylosis with radiculopathy, lumbar region
CPT/HCPCS: 62323; J2250; J1040; J3010; Q9966; 99152

== ENCOUNTER → 2022-02-22 | Outpatient (CLI) | payer OTHER ==
[2022-02-22 14:33] VITALS: BP 132/83; PULSE 86; RESP 16
--- NOTE | 2022-02-22 14:37 | P.PAINPG ---
PQRS Measure Charge Sheet Comment: A 57 yr old male with a history of severe and chronic low back pain secondary to lumbar degenerative disc diseases and lumbar spondylosis with facet arthropathy presents today for evaluation s/p LESI L4-L5 #2. 90% for 2 weeks s/p procedure. Pain level is 5/10 in intensity, achy/ sharp/ shooting towards LLE. Pain is provoked by walking for periods of 20 min or more. Pain is alleviated with PT integrated with massage in Oct 2021, ice, home based stretching regimen, repositioning and rest. Interventional pain procedures completed include LESI L4-L5 x 2 Patient is currently on DENIES Patient denies any side effects of the medication(s), denies excessive drowsiness or sleepiness, denies suicidal ideation and reports that the current pain medication is helping to control the pain and improve activities of daily living. Patient denies any motor or sensory deficits. Patient denies any fever or night sweats, denies any change in the bowel movements or urination. Physical Examination: -Constitutional: Cooperative. Not in acute distress . - Neurologic: Cranial nerve II to XII intact. No focal neurological deficits. - Psychatric: Alert & oriented x 3. Matching mood & appropriate affect. Judgment and insight intact. - Musculoskeletal: Cervical spine: Muscle bulk/ tone/ strength in the bilateral upper extremities normal Vertebral body tenderness to palpation over Spurling test positive Distraction test positive Facet loading test positive Thoracic spine Muscle bulk / tone/ strength in the bilateral paraspinal muscles normal Vertebral body tender to palpation over Facet loading test positive Lumbar spine: Motor bulk/ tone/ strength lower extremities , thigh and legs : 5/5 Deep tendon reflexes : Normal Knee Jerk. Normal Ankle Jerk . Vertebral body tenderness to palpation over Lumbar Facet Loading Test positive over BL L4-L5, L5-S1 w accompanying paraspinal TTP Straight Leg Raise: positive at 30 degrees right side/ left side Gaenslen's Test positive Sacral spine : Severe tenderness over the Sacroiliac joint: right side / left side Range of motion: Flexion of the lumbar spine <60 degrees Range of motion: Extension of the lumbar spine <20 degrees Gaenslen's Test positive Jules's Test positive Kasey test: positive right side / left side Thigh Thrust Test Sacral Thrust Test Assessment and plan: Chronic low back pain secondary to lumbar degenerative disc disease , lumbar spondylosis with facet arthropathy without myelopathy Recommendation of BL facet block of the medial branches L4-L5, L5-S1. May need a series of injections, up until RFA, for optimal pain relief. Risks, benefits of procedure discussed and pt verbalized understanding. Denies anticoagulant use or medical history of diabetes. All patient questions answered MAPS reviewed and it was appropriate. I have spent less than 30 minutes on patient care today. Dr Irizarry was available by phone for the evaluation of this patient. The time was used to review the medical records including relevant urine studies and Prescription history (MAPs), review of the available imaging, evaluation and examination of the patient, coordination of care with the medical staff and if applicable referring physicians, as well as creation of the medical record PQRS Narrative: Smoking Status Never smoker Hx Alcohol Use (MH) Yes Home Medications: Ambulatory Orders Atorvastatin [Lipitor] 20 mg PO DAILY 11/29/21 Lidocaine 5% Patch [Lidoderm 5% Patch] 1 patch TOPICAL DAILY 30 Days #30 patch 02/05/22 Controlled Substance Measures - Controlled Substance Measures Is patient prescribed a controlled substance at discharge?: No
== END ==
LOC: PNWHC3 14:05
PROVIDERS: ATTEND Specialist
DX: M51.36 Other intervertebral disc degeneration, lumbar region (principal); M47.816 Spondylosis without myelopathy or radiculopathy, lumbar region; G89.29 Other chronic pain
CPT/HCPCS: 99211

== ENCOUNTER 2022-03-23 06:13 | Day surgery (SDC) | payer OTHER ==
[2022-03-21 12:11] VITALS: BMI 35.6
[~2022-03-23 06:13] MED LIST: LIDOCAINE 1% (10MG/ML) FOR IV START INTRADERMA PRN
[2022-03-23 06:40] VITALS: TEMP 98.1
[2022-03-23] MEDS: LACTATED RINGERS 1,000 ML IV SCH ×2 (06:47→06:53)
[2022-03-23] MEDS ORDERED: methylPREDNISolone ACETATE 40 MG/ML 1 ML VIAL ONE (06:55)
[2022-03-23] MEDS ORDERED: MIDAZOLAM 2 MG/2 ML VIAL ONE (06:55)
[2022-03-23] MEDS ORDERED: ROPIVACAINE 5MG/ML 20ML VIAL ONE (06:55)
[2022-03-23] MEDS ORDERED: fentaNYL (PF) 50 MCG/ML 2 ML AMP ONE (06:55)
[2022-03-23] MEDS ORDERED: IV FLUID CONTINUATION 800 ML IV ONE (07:18)
[2022-03-23 07:25] VITALS: RESP 16
[2022-03-23 07:35] VITALS: BP 115/76; PULSE 64
--- NOTE | 2022-03-23 07:39 | P.PCN ---
Date of Procedure: 03/23/22 Procedure(s) Performed: PREOPERATIVE DIAGNOSIS : 1- Lumbar spondylosis with Facet Arthropathy without myelopathy . 2- Lumber degenerative disc disease POSTOPERATIVE DIAGNOSIS: 1- Lumbar spondylosis with Facet Arthropathy without myelopathy . 2- Lumber degenerative disc disease PROCEDURE: Diagnostic bilateral L3 , L4 , and L5 medial branch block under fluoroscopy guidance(fluoroscopy images available in the radiology Department ) ( To target the facet joint between bilateral L4-5 , and L5-S1 )#1st ANESTHESIA:, Monitored anesthesia care as per anesthesia department. EBL: Minimal COMPLICATION: None PROCEDURE INDICATION: Chronic low back pain secondary to Facet arthropathy unresponsive to conservative treatment. PROCEDURE DESCRIPTION: the patient was seen and identified in the preop holding area , risks and benefits and possible complications of the procedure and alternative were discussed with the patient, and the patient agreed to proceed with the procedure and signed the consent and vital signs monitored during the procedure and fluoroscopy was used to maximize the benefit and accuracy of the needle placement, and sedation was given to decrease patient anxiety, patient was taken to the procedure room and placed in prone position vital signs monitored in the back prepped with chlorhexidine X3 then under strict sterile technique using a right oblique fluoroscopy ,the junction of the transverse process and the superior articulating process of the right L3 , L4 , and L5 vertebra which corresponding to the fluoroscopy image of the eye of the Bhavesh dog on the block side for the medial branches and subsequently , after local infiltration of skin and subcu tissuies with Ropivacaine 0.5 % , one mL at each level ,then 22-gauge Quincke-type needles , 3 needle was used , each one of them placed at the junction of the base of the transverse process and the superior articular process at the appropriate level, and the needle was advanced until the periosteum contacted, needle placement confirmed with AP oblique and lateral view and after appropriate needle placement confirmed, and after negative aspiration for heme and CSF and there was no paresthesia 1-1/2 mL of Ropivacaine 0.5% mixed with 20 mg Depo-Medrol , then half mL injected at each level after negative aspiration the needle subsequently removed and the same procedure repeated for the left side at left side at L3 , L4 and L5 levels. At the end of the procedure and the needles removed and a bandage applied after the skin was cleaned the cleaning solution patient taken to recovery room in stable condition and monitors in the recovery room for 20-30 minutes and discharged home in stable condition after discharge criteria met and patient will follow up with the pain clinic in 2-4 weeks
--- NOTE | 2022-03-23 09:12 | FL ---
Intraoperative/procedural fluoroscopic services were provided. Total fluoroscopy time is 7 seconds wi th a total of 4 submitted images to PACS. Please see the operative/procedural note for further detail s.
== END 2022-03-23 07:51 | disposition home or self-care (01) ==
LOC: ORPAIN 06:13
PROVIDERS: ATTEND Specialist
DX: M47.816 Spondylosis without myelopathy or radiculopathy, lumbar region (principal); M51.36 Other intervertebral disc degeneration, lumbar region; G89.29 Other chronic pain
CPT/HCPCS: 64493; 64494; J2250; J1030; J3010; J2795

== ENCOUNTER → 2022-04-02 | Outpatient (CLI) | payer OTHER ==
[2022-04-02 08:12] VITALS: BP 145/84; PULSE 66; RESP 18; TEMP 98.2
--- NOTE | 2022-04-02 14:17 | P.PAINPG ---
Objective - Vital Signs Vital signs: Vital Signs Temp 98.2 F 04/02/22 07:54 Pulse 66 04/02/22 07:54 Resp 18 04/02/22 07:54 BP 145/84 04/02/22 07:54 Pulse Ox 95 04/02/22 07:54 FiO2 PQRS Measure Charge Sheet Mode of Arrival: Ambulatory Comment: A 57 yr old male with a history of severe and chronic low back pain secondary to lumbar degenerative disc diseases and lumbar spondylosis with facet arthropathy presents today for evaluation s/p BL facet block of the medial branches L4-L5, L5-S1 #1. 95% for 1 1/2 days Pain level is 8/10 in intensity, localized in lower lumbar spine, achy throbbing in character w radiation to BLEs, L>R. Pain was provoked by a surgery he underwent years ago. Pain is alleviated with PT in Sep-Nov 2021 integrated w massage, heat, ice, topicals, laying supine, home exercise regimen, repositioning and rest. Interventional pain procedures completed include BL MBB L3-L5 x1 Patient is currently on topicals Patient denies any side effects of the medication(s), denies excessive drow siness or sleepiness, denies suicidal ideation and reports that the current pain medication is helping to control the pain and improve activities of daily living. Patient denies any motor or sensory deficits. Patient denies any fever or night sweats, denies any change in the bowel movements or urination. Physical Examination: -Constitutional: Cooperative. Not in acute distress . - Neurologic: Cranial nerve II to XII intact. No focal neurological deficits. - Psychatric: Alert & oriented x 3. Matching mood & appropriate affect. Judgment and insight intact. - Musculoskeletal: Cervical spine: Muscle bulk/ tone/ strength in the bilateral upper extremities normal Vertebral body tenderness to palpation over Spurling test positive Distraction test positive Facet loading test positive Thoracic spine Muscle bulk / tone/ strength in the bilateral paraspinal muscles normal Vertebral body tender to palpation over Facet loading test positive Lumbar spine: Motor bulk/ tone/ strength lower extremities , thigh and legs : 5/5 Deep tendon reflexes : Normal Knee Jerk. Normal Ankle Jerk . Vertebral body tenderness to palpation over Lumbar Facet Loading Test positive over BL L4-L5, L5-S1 w accompanying paraspinal TTP Straight Leg Raise: positive at 30 degrees right side/ left side Gaenslen's Test positive Sacral spine : Severe tenderness over the Sacroiliac joint: right side / left side Range of motion: Flexion of the lumbar spine <60 degrees Range of motion: Extension of the lumbar spine <20 degrees Gaenslen's Test positive Jules's Test positive Kasey test: positive right side / left side Thigh Thrust Test Sacral Thrust Test Assessment and plan: Chronic low back pain secondary to lumbar degenerative disc disease , lumbar spondylosis with facet arthropathy without myelopathy Recommendation of BL facet block of the medial branches L4-L5, L5-S1 #2. May need a series of injections, up until RFA, for optimal pain relief. Risks, benefits of procedure discussed and pt verbalized understanding. Denies anticoagulant use or medical history of diabetes. All patient questions answered MAPS reviewed and it was appropriate I have spent less than 30 minutes on patient care today. Dr Irizarry was available by phone for the evaluation of this patient. The time was used to review the medical records including relevant urine studies and Prescription history (MAPs), review of the available imaging, evaluation and examination of the patient, coordination of care with the medical staff and if applicable referring physicians, as well as creation of the medical record - Pain Location Bilateral Lower Back Non-Pharmacological Interventions: Heat, Ice, Inactivity, Stretching Pharmacological Interventions: Block, Topical Medication PQRS Narrative: Smoking Status Never smoker Blood Pressure 145/84 Pain Intensity [Bilateral 8 Lower Back] Scale Used Numeric (1 - 10) Hx Alcohol Use (MH) Yes Home Medications: Ambulatory Orders No Known Home Medications 03/21/22 Controlled Substance Measures - Controlled Substance Measures Is patient prescribed a controlled substance at discharge?: No
== END ==
LOC: PNWHC3 07:38
PROVIDERS: ATTEND Specialist
DX: M47.816 Spondylosis without myelopathy or radiculopathy, lumbar region (principal); M51.36 Other intervertebral disc degeneration, lumbar region; G89.29 Other chronic pain
CPT/HCPCS: 99211

== ENCOUNTER 2022-05-04 06:02 | Day surgery (SDC) | payer OTHER ==
[2022-05-03 09:44] VITALS: BMI 34.4
[~2022-05-04 06:02] MED LIST changes: +LACTATED RINGERS 1,000 ML IV SCH
[2022-05-04 06:22] VITALS: RESP 16; TEMP 98
[2022-05-04] MEDS ORDERED: ROPIVACAINE 5MG/ML 20ML VIAL ONE (06:55)
[2022-05-04] MEDS ORDERED: methylPREDNISolone ACETATE 40 MG/ML 1 ML VIAL ONE (06:55)
[2022-05-04] MEDS ORDERED: fentaNYL (PF) 50 MCG/ML 2 ML AMP ONE (06:55)
[2022-05-04] MEDS ORDERED: MIDAZOLAM 2 MG/2 ML VIAL ONE (06:55)
--- NOTE | 2022-05-04 07:15 | P.PCN ---
Date of Procedure: 05/04/22 Procedure(s) Performed: PREOPERATIVE DIAGNOSIS : 1- Lumbar spondylosis with Facet Arthropathy without myelopathy . 2- Lumber degenerative disc disease POSTOPERATIVE DIAGNOSIS: 1- Lumbar spondylosis with Facet Arthropathy without myelopathy . 2- Lumber degenerative disc disease PROCEDURE: Diagnostic bilateral L3 , L4 , and L5 medial branch block under fluoroscopy guidance(fluoroscopy images available in the radiology Department ) ( To target the facet joint between bilateral L4-5 , and L5-S1 )#2nd ANESTHESIA:, Monitored anesthesia care as per anesthesia department. EBL: Minimal COMPLICATION: None PROCEDURE INDICATION: Chronic low back pain secondary to Facet arthropathy unresponsive to conservative treatment. PROCEDURE DESCRIPTION: the patient was seen and identified in the preop holding area , risks and benefits and possible complications of the procedure and alternative were discussed with the patient, and the patient agreed to proceed with the procedure and signed the consent and vital signs monitored during the procedure and fluoroscopy was used to maximize the benefit and accuracy of the needle placement, and sedation was given to decrease patient anxiety, patient was taken to the procedure room and placed in prone position vital signs monitored in the back prepped with chlorhexidine X3 then under strict sterile technique using a right oblique fluoroscopy ,the junction of the transverse process and the superior articulating process of the right L3 , L4 , and L5 vertebra which corresponding to the fluoroscopy image of the eye of the Bhavesh dog on the block side for the medial branches and subsequently , after local infiltration of skin and subcu tissuies with Ropivacaine 0.5 % , one mL at each level ,then 22-gauge Quincke-type needles , 3 needle was used , each one of them placed at the junction of the base of the transverse process and the superior articular process at the appropriate level, and the needle was advanced until the periosteum contacted, needle placement confirmed with AP oblique and lateral view and after appropriate needle placement confirmed, and after negative aspiration for heme and CSF and there was no paresthesia 1-1/2 mL of Ropivacaine 0.5% mixed with 20 mg Depo-Medrol , then half mL injected at each level after negative aspiration the needle subsequently removed and the same procedure repeated for the left side at left side at L3 , L4 and L5 levels. At the end of the procedure and the needles removed and a bandage applied after the skin was cleaned the cleaning solution patient taken to recovery room in stable condition and monitors in the recovery room for 20-30 minutes and discharged home in stable condition after discharge criteria met and patient will follow up with the pain clinic in 2-4 weeks
[2022-05-04] MEDS ORDERED: IV FLUID CONTINUATION 700 ML IV ONE (07:18)
[2022-05-04 07:36] VITALS: BP 134/79; PULSE 62
--- NOTE | 2022-05-04 08:06 | FL ---
Fluoroscopy History: MIRTA LUM FACET BLOCK mirta lumbar facets 8 sec fl time used
== END 2022-05-04 07:49 | disposition home or self-care (01) ==
LOC: ORPAIN 06:02
PROVIDERS: ATTEND Specialist
DX: G89.29 Other chronic pain (principal); M51.36 Other intervertebral disc degeneration, lumbar region; M47.816 Spondylosis without myelopathy or radiculopathy, lumbar region; E78.5 Hyperlipidemia, unspecified; M19.90 Unspecified osteoarthritis, unspecified site
CPT/HCPCS: 64493; 64494 ×2; J2250; J1030; J3010; J2795

== ENCOUNTER → 2022-05-23 | Outpatient (CLI) | payer OTHER ==
[2022-05-23 08:03] VITALS: BP 132/83; PULSE 59; RESP 18
--- NOTE | 2022-05-23 14:08 | P.PAINPG ---
Objective - Vital Signs Vital signs: Intake & Output 05/22/22 05/23/22 05/23/22 18:59 06:59 18:59 Weight 102.058 kg PQRS Measure Charge Sheet Comment: A 57 yr old male with a history of severe and chronic low back pain secondary to lumbar degenerative disc diseases and lumbar spondylosis with facet arthropathy without myelopathy presents today for evaluation s/p BL MBB L3-L5 #2. Pt states he experienced 90% pain relief x 1 1/2 days s/p procedure. Pain level is currently at 9 /10 in intensity, constant, localized in lower lumbar spine, achy in character w shooting towards LLE. Pain is provoked by standing/walking for periods of 15 min or more. Pain is alleviated with PT in December 2021, chiropractic treatments 1 time which worsened pain, home stretching regimen as tolerated, repositioning and rest. Interventional pain procedures completed include BL MBB L3-L5 x2. Patient is currently on DENIES Patient denies any side effects of the medication(s), denies excessive drowsiness or sleepiness, denies suicidal ideation and reports that the current pain medication is helping to control the pain and improve activities of daily living. Patient denies any motor or sensory deficits. Patient denies any fever or night sweats, denies any change in the bowel movements or urination. Physical Examination: -Constitutional: Cooperative. Not in acute distress . - Neurologic: Cranial nerve II to XII intact. No focal neurological deficits. - Psychatric: Alert & oriented x 3. Matching mood & appropriate affect. Judgment and insight intact. - Musculoskeletal: Cervical spine: Muscle bulk/ tone/ strength in the bilateral upper extremities normal Vertebral body tenderness to palpation over Spurling test positive Distraction test positive Facet loading test positive Thoracic spine Muscle bulk / tone/ strength in the bilateral paraspinal muscles normal Vertebral body tender to palpation over Facet loading test positive Lumbar spine: Motor bulk/ tone/ strength lower extremities , thigh and legs : 5/5 Deep tendon reflexes : Normal Knee Jerk. Normal Ankle Jerk . Vertebral body tenderness to palpation over Lumbar Facet Loading Test positive w jump reflex over BL L4-L5, L5-S1 Straight Leg Raise: positive at 30 degrees right side/ left side Gaenslen's Test positive Sacral spine : Severe tenderness over the Sacroiliac joint: right side / left side Range of motion: Flexion of the lumbar spine <60 degrees Range of motion: Extension of the lumbar spine <20 degrees Gaenslen's Test positive Jules's Test positive Kasey test: positive right side / left side Thigh Thrust Test Sacral Thrust Test Assessment and plan: Chronic low back pain secondary to lumbar degenerative disc disease , lumbar spondylosis with facet arthropathy without myelopathy Recommendation of BL RFA L4, L5, L5-S1. Pt experienced sufficient pain relief w prior BL MBB procedures. Risks, benefits of procedure discussed and pt verbalized understanding. Denies anticoagulant use or medical history of diabetes. All patient questions answered MAPS reviewed and it was appropriate. I have spent less than 30 minutes on patient care today. Dr Irizarry was available by phone for the evaluation of this patient. The time was used to review the medical records including relevant urine studies and Prescription history (MAPs), review of the available imaging, evaluation and examination of the patient, coordination of care with the medical staff and if applicable referring physicians, as well as creation of the medical record - Pain Location Bilateral Lower Back Non-Pharmacological Interventions: Chiropractic Treatment, Heat, Home Exercise, Ice, Physical Therapy, Position/Reposition, Sitting, Stretching Pharmacological Interventions: Block, Epidural PQRS Narrative: Smoking Status Never smoker Pain Intensity [Bilateral 8 Lower Back] Scale Used Numeric (1 - 10) Hx Alcohol Use (MH) Yes Home Medications: Ambulatory Orders No Known Home Medications 03/21/22 Controlled Substance Measures - Controlled Substance Measures Is patient prescribed a controlled substance at discharge?: No
== END ==
LOC: PNWHC3 07:33
PROVIDERS: ATTEND Specialist
DX: M51.36 Other intervertebral disc degeneration, lumbar region (principal); M47.816 Spondylosis without myelopathy or radiculopathy, lumbar region; G89.29 Other chronic pain; F10.90 Alcohol use, unspecified, uncomplicated
CPT/HCPCS: 99211

== ENCOUNTER 2022-07-06 06:48 | Day surgery (SDC) | payer OTHER ==
[2022-07-06] MEDS ORDERED: LIDOCAINE 1% (10MG/ML) FOR IV START INTRADERMA ONE (07:10)
[2022-07-06] MEDS ORDERED: MIDAZOLAM 2 MG/2 ML VIAL ONE (07:13)
[2022-07-06] MEDS ORDERED: ROPIVACAINE 5 MG/ML 20 ML AMPULE ONE (07:13)
[2022-07-06] MEDS ORDERED: methylPREDNISolone ACETATE 40 MG/ML 1 ML VIAL ONE (07:13)
[2022-07-06] MEDS ORDERED: fentaNYL (PF) 50 MCG/ML 2 ML AMP ONE (07:13)
[2022-07-06 07:15] VITALS: RESP 16; TEMP 98.2
--- NOTE | 2022-07-06 07:47 | P.PCN ---
Date of Procedure: 07/06/22 Procedure(s) Performed: PREOPERATIVE DIAGNOSIS: 1-Lumbar Spondylosis with Facet Arthropathy without myelopathy. 2- Lumber degenerative disc disease. POSTOPERATIVE DIAGNOSIS: 1- Lumbar Spondylosis with Facet Arthropathy without myelopathy. 2- Lumber degenerative disc disease. PROCEDURES : Bilateral Radiofrequency thermocoagulation, L3 , L4 , and L5 medial branch, with fluoroscopic guidance (fluoroscopy images available in the radiology department) ( to denervate the facet joint at bilateral L4-5 ,and L5-S1 levels ). ANESTHESIA: Monitored anesthesia care as per anesthesia department . EBL: Minimal PROCEDURE INDICATION: The patient with low back pain secondary to lumbar facet arthropathy who had more than 80% relief of her pain with previous diagnostic lumbar medial branch block with bupivacaine. PROCEDURE DESCRIPTION / TECHNIQUE: The patient was seen and identified in the preoperative area. Risks, benefits, complications, including but not limited to risk of infection ,bleeding , allergic reactions to the medications and no complete pain releife , and alternatives were discussed with the patient, the patient agreed to proceed with the procedure and signed the consent. IV was started. Vital signs remained stable throughout the procedure. Patient was taken to the OR and time out was completed. The patient was placed in the prone position on the procedure table. The lumber area was prepped and draped in the usual sterile fashion. . Vital signs were closely monitored during the procedure .IV sedation was used during the procedure to decrease patients anxiety. Using AP and then oblique fluoroscopy, the ``eye of the Bhavesh dog albina esponding to the connection between the superior and transverse articular processes of right L3, L4, and L5 were identified, marked, and localized with 1% lidocaine. Subsequently, a 18 [id number] radiofrequency cannula with a 10- mm active tip was advanced guided by fluoroscopy to each of the``eyes of the Bhavesh dog at right L3, L4, and L5. Each site then underwent sensory testing at 50 Hz and 0 to 1 volt and motor testing at 2.5 Hz and 0 to 3 volt with local stimulation, but no radicular symptoms down the legs. Thereafter each sites underwent radiofrequency thermocoagulation at 80 degrees celsius for 90 seconds after injecting 0.5 ml of PF Ropivacaine 1ml, then after the thermocoagulation done , 1 ml of the block solution containing Depo-Medrol 20 mg and 3 ml of Ropivacaine 0.5% was injected at the right L3 , L4 , and L5 , levels after negative aspiration of CSF and blood and with no paresthesias. Cannulas were retracted while injecting lidocaine 1% until the needle is out. The same procedure was repeated at the level of Left L3, L4, and L5 levels. At the end of the procedure, the skin was cleansed and bandages were applied. COMPLICATIONS: No acute complications. DISPOSITION / PLANS: The patient was placed in a supine position and transferred to the recovery area in a stable condition for observation and was discharged from the recovery room after meeting discharge criteria. Home discharge instructions given to the patient by the staff. The patient was reexamined prior to discharge. The patient will schedule a follow up in the clinic in 2-4 weeks.
[2022-07-06] MEDS ORDERED: IV FLUID CONTINUATION 1,000 ML IV ONE (07:51)
--- NOTE | 2022-07-06 08:01 | FL ---
Fluoroscopy History: Ashwin Lumbar Rad Freq 16 sec fl time used ashwin lumbar rad freq.
[2022-07-06 08:07] VITALS: BP 137/91; PULSE 72
== END 2022-07-06 08:24 | disposition home or self-care (01) ==
LOC: ORPAIN 06:48
PROVIDERS: ATTEND Specialist
DX: M51.36 Other intervertebral disc degeneration, lumbar region (principal); M47.816 Spondylosis without myelopathy or radiculopathy, lumbar region
CPT/HCPCS: 64635; 64636; J2250; J1030; J3010; J2795

== ENCOUNTER → 2022-07-25 | Outpatient (CLI) | payer OTHER ==
[2022-07-25 08:27] VITALS: BP 135/86; PULSE 70; RESP 18; TEMP 98.2
--- NOTE | 2022-07-25 14:23 | P.PAINPG ---
PQRS Measure Charge Sheet Comment: A 57 yr old male with a history of severe and chronic low back pain secondary to lumbar DDD and spondylosis with facet arthropathy without myelopathy presents today for evaluation s/p BL RFA L3-L5. Pt states he experienced 80 % pain relief s/p procedure. Pain level is currently at 5 /10 in intensity, constant, localized in the L lower lumbar spine, dull/ achy in character w shooting towards the L hip and LLE occasionally. Pain is provoked by inactivity. Pain is alleviated with PT in Aug 2021, home exercise daily, chiropractic treatments in the past, alternating heat & ice, repositioning and rest. Interventional pain procedures completed include BL RFA L3-L5 Patient is currently on Denies Patient denies any side effects of the medication(s), denies excessive drowsiness or sleepiness, denies suicidal ideation and reports that the current pain medication is helping to control the pain and improve activities of daily living. Patient denies any motor or sensory deficits. Patient denies any fever or night sweats, denies any change in the bowel movements or urination. Physical Examination: -Constitutional: Cooperative. Not in acute distress . - Neurologic: Cranial nerve II to XII intact. No focal neurological deficits. - Psychatric: Alert & oriented x 3. Matching mood & appropriate affect. Ju dgment and insight intact. - Musculoskeletal: Cervical spine: Muscle bulk/ tone/ strength in the bilateral upper extremities normal Vertebral body tenderness to palpation over Spurling test positive Distraction test positive Facet loading test positive Thoracic spine Muscle bulk / tone/ strength in the bilateral paraspinal muscles normal Vertebral body tender to palpation over Facet loading test positive Lumbar spine: Motor bulk/ tone/ strength lower extremities , thigh and legs : 5/5 Deep tendon reflexes : Normal Knee Jerk. Normal Ankle Jerk . Vertebral body tenderness to palpation over L L2-S1 paraspinal TTP Lumbar Facet Loading Test positive Straight Leg Raise: positive at 30 degrees right side/ left side Gaenslen's Test positive Sacral spine : Severe tenderness over the Sacroiliac joint: right side / left side Range of motion: Flexion of the lumbar spine <60 degrees Range of motion: Extension of the lumbar spine <20 degrees Gaenslen's Test positive Kasey test: positive right side / left side Thigh Thrust Test Sacral Thrust Test Assessment and plan: Chronic low back pain secondary to lumbar degenerative disc disease, spondylosis with facet arthropathy without myelopathy Recommendation of L TPIs L2-S1. May need a series, up to every 2-3 mo, for optimal pain relief. Risks, benefits of procedure discussed and pt verbalized understanding. Denies anticoagulant use or medical history of diabetes. All patient questions answered I have spent less than 30 minutes on patient care today. Dr Irizarry was available by phone for the evaluation of this patient. The time was used to review the medical records including relevant urine studies and Prescription history (MAPs), review of the available imaging, evaluation and examination of the patient, coordination of care with the medical staff and if applicable referring physicians, as well as creation of the medical record PQRS Narrative: Smoking Status Never smoker Hx Alcohol Use (MH) Yes Home Medications: Ambulatory Orders No Known Home Medications 03/21/22 Controlled Substance Measures - Controlled Substance Measures Is patient prescribed a controlled substance at discharge?: No
== END ==
LOC: PNWHC3 08:08
PROVIDERS: ATTEND Specialist
DX: M47.816 Spondylosis without myelopathy or radiculopathy, lumbar region (principal); M51.36 Other intervertebral disc degeneration, lumbar region; G89.29 Other chronic pain
CPT/HCPCS: 99211

== ENCOUNTER 2022-11-01 06:00 | Day surgery (SDC) | payer OTHER ==
[2022-11-01] MEDS ORDERED: LACTATED RINGERS 1,000 ML IV SCH (06:10)
[2022-11-01] MEDS ORDERED: LIDOCAINE 1% (10MG/ML) FOR IV START INTRADERMA PRN (06:10)
[2022-11-01 06:19] VITALS: TEMP 97
[2022-11-01] MEDS ORDERED: MIDAZOLAM 2 MG/2 ML VIAL ONE (06:59)
[2022-11-01] MEDS ORDERED: fentaNYL (PF) 50 MCG/ML 2 ML AMP ONE (06:59)
[2022-11-01] MEDS ORDERED: ROPIVACAINE 5 MG/ML 20 ML AMPULE ONE (06:59)
[2022-11-01] MEDS ORDERED: methylPREDNISolone ACETATE 40 MG/ML 1 ML VIAL ONE (06:59)
[2022-11-01] MEDS ORDERED: IV FLUID CONTINUATION 1,000 ML IV ONE ×2 (07:11)
--- NOTE | 2022-11-01 07:13 | P.PCN ---
Date of Procedure: 11/01/22 Procedure(s) Performed: Procedure= trigger point injections lumbar paraspinal muscles bilaterally , 4 on the left side from L2 to S1 Preoperative diagnosis= 1-myofascial pain syndrome lumbar paraspinal muscles 2-lumbar degenerative disc disease 3-lumbar facet arthropathy Postoperative diagnosis=Same as preop Diagnosis . Complication = none Condition= stable Anesthesia= moderate sedation with Versed 2 mg. and fentanyl 50 g Sedation started at 0702 and ended at 0705 Indication for the procedure= patient complaining of low back pain , examination was positive for multiple trigger point in the lumbar paraspinal muscles on the left side and patient diagnosed with myofascial pain syndrome and is here to have trigger point injections Description of the procedure= procedure risk and benefits discussed with the patient, including but not limited, risk of infection and bleeding, and ALLERGIC reaction to the medication and not complete pain relief and patient agreed with the preceding patient taken to the operating room, placed in sitting position or standard monitors applied to the patient then after induction of anesthesia back prepped with chlorhexidine 3 times , then under sterile technique each of the trigger point that was marked in the preop holding area 4 on the left side lumbar paraspinal muscles each one of them injected with the 2 mL of the mixture of ropivacaine 0.5%8 ML mixed with 40 mg of Depo-Medrol and 2 mL of the mixture injected at each trigger point after negative aspiration, using 25-gauge needle, injection done after negative aspiration under was no paresthesia during the injection patient tolerated the procedure well without any complications and he will follow up in the pain clinic in a few weeks
[2022-11-01 07:22] VITALS: RESP 16
[2022-11-01 07:36] VITALS: BP 126/85; PULSE 62
== END 2022-11-01 07:39 | disposition home or self-care (01) ==
LOC: ORPAIN 06:00
PROVIDERS: ATTEND Specialist
DX: M79.18 Myalgia, other site (principal); M51.36 Other intervertebral disc degeneration, lumbar region; M47.816 Spondylosis without myelopathy or radiculopathy, lumbar region
CPT/HCPCS: 20552; J2250; J1030; J3010; J2795

== ENCOUNTER → 2022-11-22 | Outpatient (CLI) | payer OTHER ==
[2022-11-22 14:43] VITALS: BP 134/77; PULSE 71; RESP 20; TEMP 97.9
--- NOTE | 2022-11-22 14:47 | P.PN ---
Subjective Progress Note Date: 11/22/22 A 57 yr old male with a history of severe and chronic low back pain secondary to lumbar DDD and spondylosis with facet arthropathy without myelopathy presents today for evaluation s/p BL RFA L3-L5. Pt states he experienced 80 % pain relief s/p procedure. Pain level is currently at 5 /10 in intensity, constant, localized in the L lower lumbar spine, dull/ achy in character w shooting towards the L hip and LLE occasionally disintegrated with numbness and tingling sensation in the left foot and big toe. Pain is provoked by inactivity. Pain is alleviated with PT in Aug 2021, home exercise daily, chiropractic treatments in the past, alternating heat & ice, repositioning and rest. Interventional pain procedures completed include BL RFA L3-L5 Patient is currently on Denies Patient denies any side effects of the medication(s), denies excessive drowsiness or sleepiness, denies suicidal ideation and reports that the current pain medication is helping to control the pain and improve activities of daily living. Patient denies any motor or sensory deficits. Patient denies any fever or night sweats, denies any change in the bowel movements or urination. Physical Examination: -Constitutional: Cooperative. Not in acute distress . - Neurologic: Cranial nerve II to XII intact. No focal neurological d eficits. - Psychatric: Alert & oriented x 3. Matching mood & appropriate affect. Judgment and insight intact. - Musculoskeletal: Cervical spine: Muscle bulk/ tone/ strength in the bilateral upper extremities normal Vertebral body tenderness to palpation over Spurling test positive Distraction test positive Facet loading test positive Thoracic spine Muscle bulk / tone/ strength in the bilateral paraspinal muscles normal Vertebral body tender to palpation over Facet loading test positive Lumbar spine: Motor bulk/ tone/ strength lower extremities , thigh and legs : 5/5 Deep tendon reflexes : Normal Knee Jerk. Normal Ankle Jerk . Vertebral body tenderness to palpation over Lumbar Facet Loading Test positive Straight Leg Raise: positive at 30 degrees right side/ left side Gaenslen's Test positive Assessment and plan: 1-lumber radiculopathy . 2-lumbar degenerative disc disease, 3-lumbar spondylosis with facet arthropathy without myelopathy. 4-lumbar foraminal stenosis Patient could benefit from a left-sided transforaminal epidural steroid injection at L4 5. Seizure risk and benefits and alternatives discussed with the patient he agreed with the procedure PQRS Narrative: Smoking Status Never smoker Hx Alcohol Use (MH) Yes Home Medications: Ambulatory Orders No Known Home Medications 03/21/22 - Controlled Substance Measures Is patient prescribed a controlled substance at discharge?: No Objective - Vital Signs Vital signs: Vital Signs Temp 97.9 F 11/22/22 14:27 Pulse 71 11/22/22 14:27 Resp 20 11/22/22 14:27 BP 134/77 11/22/22 14:27 Pulse Ox 100 11/22/22 14:27 FiO2 Intake & Output 11/21/22 11/22/22 11/22/22 18:59 06:59 18:59 Weight 104.326 kg
== END ==
LOC: PNWHC3 14:09
PROVIDERS: ATTEND Specialist
DX: M51.16 Intervertebral disc disorders with radiculopathy, lumbar region (principal); M47.26 Other spondylosis with radiculopathy, lumbar region; M48.061 Spinal stenosis, lumbar region without neurogenic claudication
CPT/HCPCS: 99211

== ENCOUNTER 2022-12-20 06:20 | Day surgery (SDC) | payer OTHER ==
[2022-12-18 11:08] VITALS: BMI 34.7
[2022-12-20 06:48] VITALS: TEMP 98.3
[2022-12-20] MEDS ORDERED: LACTATED RINGERS 1,000 ML IV ONE (07:00)
[2022-12-20] MEDS ORDERED: LACTATED RINGERS 1,000 ML IV SCH (07:15)
[2022-12-20] MEDS ORDERED: IOPAMIDOL M200 10 ML VIAL ONE (07:17)
[2022-12-20] MEDS ORDERED: MIDAZOLAM 2 MG/2 ML VIAL ONE (07:17)
[2022-12-20] MEDS ORDERED: fentaNYL (PF) 50 MCG/ML 2 ML AMP ONE (07:17)
[2022-12-20] MEDS ORDERED: methylPREDNISolone ACETATE 80 MG/ML 1 ML VIAL ONE (07:17)
--- NOTE | 2022-12-20 07:36 | P.PCN ---
Date of Procedure: 12/20/22 Description of Procedure: PREOPERATIVE DIAGNOSIS: Lumbar postlaminectomy syndrome, Lumbar radiculopathy. POSTOPERATIVE DIAGNOSIS: Lumbar postlaminectomy syndrome, and Lumbar radiculopathy. PROCEDURE: 1) left-sided L4-L5 Transforaminal epidural steroid injection under fluoroscopic guidance, 2) Epidurogram SURGEON: Pa Garcia ANESTHESIA: Local 1% lidocaine, and IV sedation: Versed 2 mg, and fentanyl 100 g Sedation supervision timings: 719- 730. EBL: None. Specimen removed: None Fluoroscopic imaging: saved to electronic medical record PROCEDURE INDICATION: The patient with continued lumbar pain with radiculopathy, and intervertebral disc disease without myelopathy that has failed to respond to adequate conservative management. PROCEDURE DESCRIPTION: The patient was seen and identified in the preoperative area. Risks, benefits, complications, and alternatives were discussed with the patient. The patient agreed to proceed with the procedure and signed the consent. IV was started, and vital signs were stable. Patient was taken to the OR and time out was completed. The patient was placed in the prone position on procedure table and a pillow was placed under the abdomen to reduce lumbar lordosis. The lumbosacral area was prepped with ChloraPrep 1 and draped in the usual sterile fashion. Critical pause was taken. Vital signs were closely monitored during the procedure. Using oblique fluoroscopy, the chin of the Bhavesh dog L4 was identified, and the skin and deeper tissues just below was localized with 1% lidocaine. 25-guage 5-inch spinal needles were used for the procedure. The needles were guided by fluoroscopy just underneath the chin of the Bhavesh dog of L4. Under AP fluoroscopy, the needles were advanced to the 6 o'clock position of the L4 pedicle. Lateral view conformed. After negative aspiration of CSF and blood and with no paresthesias, 1 mL of [id number] contrast dye was injected anterior epidural spread and outlining of the L4 nerve root. 3 mL of block solution injected after negative aspiration. Block solution contained 80 mg of Depo- Medrol preservative-free with 1 mL of normal saline preservative-free. Needle was removed intact, skin was cleansed, and bandages were applied. COMPLICATIONS: None. DISPOSITION : The patient was placed in a supine position and transferred to the recovery area in a stable condition for observation and was discharged from the recovery room after meeting discharge criteria. Home discharge instructions given to the patient by the staff. The patient was reexamined prior to discharge. The patient will schedule follow-up visit in 4 weeks duration.
[2022-12-20] MEDS ORDERED: IV FLUID CONTINUATION 1,000 ML IV ONE (07:45)
[2022-12-20 07:47] VITALS: RESP 16
[2022-12-20 07:53] VITALS: BP 116/71; PULSE 68
--- NOTE | 2022-12-20 08:58 | FL ---
Intraoperative/procedural fluoroscopic services were provided. Total fluoroscopy time is 11.8 seconds with a total of 3 submitted images to PACS. Please see the operative/procedural note for further det ails. DAP: [id number]
== END 2022-12-20 08:05 | disposition home or self-care (01) ==
LOC: ORPAIN 06:20
DX: M51.16 Intervertebral disc disorders with radiculopathy, lumbar region (principal); M96.1 Postlaminectomy syndrome, not elsewhere classified; E66.9 Obesity, unspecified; Z68.34 Body mass index [BMI] 34.0-34.9, adult; Z98.890 Other specified postprocedural states
CPT/HCPCS: 99152; 64483; J2250; J1040; J3010; Q9966

== ENCOUNTER → 2023-01-05 | Outpatient (CLI) | payer OTHER ==
[2023-01-05 13:33] LABS: Basophils # (A) 0.03 X 10*3/uL (0.00-0.10); Basophils % (A) 0.7 %; Eosinophils # (A) 0.11 X 10*3/uL (0.04-0.35); Eosinophils % (A) 2.7 %; HCT 44.7 % (39.6-50.0); HGB 14.6 g/dL (13.0-17.0); Immature Grans, Automated 0 %; Lymphocytes # (A) 1.61 X 10*3/uL (0.90-5.00); MCH 29.7 pg (27.0-32.0); MCHC 32.7 g/dL (32.0-37.0); Mean Platelet Volume 9.7 fL (9.5-12.2); Monocytes # (A) 0.31 X 10*3/uL (0.20-1.00); Monocytes % (A) 7.7 %; NRBC Per 100 WBC 0 /100 WBCS (0.0-0.0); Neutrophils # (A) 1.96 X 10*3/uL (1.80-7.70); Neutrophils % (A) 48.9 %; Platelet Count 235 X 10*3/uL (140-440); RBC 4.91 X 10*6/uL (4.40-5.60); RDW 13.4 % (11.5-14.5); WBC 4.02 X 10*3/uL (4.50-10.00)
[2023-01-05 13:44] LABS: ALT 27 U/L (10-49); AST 18 U/L (14-35); African American GFR (CKD) 108.7 (60.0-200.0); Albumin 4.8 g/dL (3.8-4.9); Albumin/Globulin Ratio 2.18 (1.60-3.17); Alkaline Phosphatase 56 U/L (41-126); Blood Urea Nitrogen 16.2 mg/dL (9.0-27.0); Calcium 9.6 mg/dL (8.7-10.3); Carbon Dioxide 26.9 mmol/L (20.0-27.5); Chloride 103 mmol/L (96-109); Chol/HDL Ratio 5.29 Ratio; Globulin 2.2 g/dL (1.6-3.3); Glucose 103 mg/dL (70-110); LDL Cholesterol,Calculated 212.6 mg/dL (0.0-131.0); Non-African American GFR(CKD) 93.8 (60.0-200.0); Potassium 4.7 mmol/L (3.5-5.5); Sodium 139 mmol/L (135-145); VLDL Calculation 19.34 mg/dL (5.00-40.00)
== END | disposition home or self-care (01) ==
LOC: LABWHC1 09:08
PROVIDERS: ATTEND Family Medicine
DX: Z12.5 Encounter for screening for malignant neoplasm of prostate (principal); E78.2 Mixed hyperlipidemia
CPT/HCPCS: 36415; 80053; 80061; 84153; 85025

== ENCOUNTER → 2023-01-07 | Outpatient (CLI) | payer OTHER ==
--- NOTE | 2023-01-07 13:32 | P.PAINPG ---
PQRS Measure Charge Sheet Comment: A 57 yr old male with a history of severe and chronic LBP secondary to lumbar DDD and spondylosis with facet arthropathy without myelopathy presents today for evaluation s/p L TFESI L4-L5. Pt states he experienced 40 % pain relief x 2 wks s/p procedure. Pt also admits to having a BL RFA L4-L5, L5-S1 in Jun 2022 in which he claims he experienced 80% pain relief x 5 mo s/p procedure. Pain level is provoked at 8 /10 in intensity, constant, localized in the lumbar spine, sharp in character w shooting towards the LLE> R. Pain is provoked by lateral flexion and standing/ walking for periods of 20 min or more. Pain is alleviated with PT integrated w massage x 6 wks in Fall 2021, injections, heat, ice, repo sitioning and rest. Interventional pain procedures completed include L TFESI L4-L5 Patient is currently on DENIES Patient denies any side effects of the medication(s), denies excessive drowsiness or sleepiness, denies suicidal ideation and reports that the current pain medication is helping to control the pain and improve activities of daily living. Patient denies any motor or sensory deficits. Patient denies any fever or night sweats, denies any change in the bowel movements or urination. Physical Examination: -Constitutional: Cooperative. Not in acute distress . - Neurologic: Cranial nerve II to XII intact. No focal neurological deficits. - Psychatric: Alert & oriented x 3. Matching mood & appropriate affect. Judgment and insight intact. - Musculoskeletal: Cervical spine: Muscle bulk/ tone/ strength in the bilateral upper extremities normal Vertebral body tenderness to palpation over Spurling test positive Distraction test positive Facet loading test positive TTP Thoracic spine Muscle bulk / tone/ strength in the bilateral paraspinal muscles normal Vertebral body tender to palpation over Facet loading test positive TTP Lumbar spine: Motor bulk/ tone/ strength lower extremities , thigh and legs : 5/5 Deep tendon reflexes : Normal Knee Jerk. Normal Ankle Jerk . Vertebral body tenderness to palpation over Perry Test positive Lumbar Facet Loading Test positive on BL L4-L5, L5-S1 Straight Leg Raise: positive at 30 degrees right side/ left side Gaenslen's Test positive Sacral spine : Severe tenderness over the Sacroiliac joint: right side / left side Range of motion: Flexion of the lumbar spine <60 degrees Range of motion: Extension of the lumbar spine <20 degrees Gaenslen's Test positive right side / left side Kasey test: positive right side / left side Thigh Thrust Test positive right side / left side Sacral Thrust Test positive right side / left side Assessment and plan: Chronic LBP secondary to lumbar DDD, spondylosis with facet arthropathy without myelopathy Recommendation of BL RFA L4-L5, L5-S1. Pt exhibited substantial pain relief w prior RFA procedure. Risks, benefits of procedure discussed and pt verbalized understanding. Admits to anticoagulant use or medical history of diabetes. Protocol for discontinuation/ continuation of medications garrett procedure discussed. Minimal anesthesia provided, if clinically indicated, consisting of Versed and Fentanyl. All questions answered. I have spent less than 30 minutes on patient care today. Dr Irizarry was available by phone for the evaluation of this patient. The time was used to review the medical records including relevant urine studies and Prescription history (MAPs), review of the available imaging, evaluation and examination of the patient, coordination of care with the medical staff and if applicable referring physicians, as well as creation of the medical record PQRS Narrative: Smoking Status Never smoker Hx Alcohol Use (MH) Yes Home Medications: Ambulatory Orders No Known Home Medications 12/18/22 Controlled Substance Measures - Controlled Substance Measures Is patient prescribed a controlled substance at discharge?: No
[2023-01-07 13:49] VITALS: BP 131/85; PULSE 66; RESP 18; TEMP 97.9
== END ==
LOC: PNWHC3 10:53
PROVIDERS: ATTEND Specialist
DX: M51.37 Other intervertebral disc degeneration, lumbosacral region (principal); M47.817 Spondylosis without myelopathy or radiculopathy, lumbosacral region; G89.29 Other chronic pain
CPT/HCPCS: 99211

== ENCOUNTER → 2023-02-08 | Day surgery (SDC) | payer OTHER ==
[2023-02-05 12:17] VITALS: BMI 34.2
[~2023-02-08] MED LIST changes: +IV FLUID CONTINUATION 1,000 ML IV ONE; +MIDAZOLAM 2 MG/2 ML VIAL ONE; +ROPIVACAINE 5 MG/ML 20 ML AMPULE ONE; +fentaNYL (PF) 50 MCG/ML 2 ML AMP ONE; +methylPREDNISolone ACETATE 40 MG/ML 1 ML VIAL ONE
[2023-02-08 06:26] VITALS: TEMP 98.4
--- NOTE | 2023-02-08 07:32 | P.PCN ---
Date of Procedure: 02/08/23 Procedure(s) Performed: PREOPERATIVE DIAGNOSIS: 1-Lumbar Spondylosis with Facet Arthropathy without myelopathy. 2- Lumber degenerative disc disease. POSTOPERATIVE DIAGNOSIS: 1- Lumbar Spondylosis with Facet Arthropathy without myelopathy. 2- Lumber degenerative disc disease. PROCEDURES : Bilateral Radiofrequency thermocoagulation, L3 , L4 , and L5 medial branch, with fluoroscopic guidance (fluoroscopy images available in the radiology department) ( to denervate the facet joint at bilateral L4-5 ,and L5-S1 levels ). ANESTHESIA: Monitored anesthesia care as per anesthesia department . EBL: Minimal PROCEDURE INDICATION: The patient with low back pain secondary to lumbar facet arthropathy who had more than 80% relief of her pain with previous diagnostic lumbar medial branch block with bupivacaine. PROCEDURE DESCRIPTION / TECHNIQUE: The patient was seen and identified in the preoperative area. Risks, benefits, complications, including but not limited to risk of infection ,bleeding , allergic reactions to the medications and no complete pain releife , and alternatives were discussed with the patient, the patient agreed to proceed with the procedure and signed the consent. IV was started. Vital signs remained stable throughout the procedure. Patient was taken to the OR and time out was completed. The patient was placed in the prone position on the procedure table. The lumber area was prepped and draped in the usual sterile fashion. . Vital signs were closely monitored during the procedure .IV sedation was used during the procedure to decrease patients anxiety. Using AP and then oblique fluoroscopy, the ``eye of the Bhavesh dog cor responding to the connection between the superior and transverse articular processes of right L3, L4, and L5 were identified, marked, and localized with 1% lidocaine. Subsequently, a 18 [id number] radiofrequency cannula with a 10- mm active tip was advanced guided by fluoroscopy to each of the``eyes of the Bhavesh dog at right L3, L4, and L5. Each site then underwent sensory testing at 50 Hz and 0 to 1 volt and motor testing at 2.5 Hz and 0 to 3 volt with local stimulation, but no radicular symptoms down the legs. Thereafter each sites underwent radiofrequency thermocoagulation at 80 degrees celsius for 90 seconds after injecting 0.5 ml of PF Ropivacaine 1ml, then after the thermocoagulation done , 1 ml of the block solution containing Depo-Medrol 20 mg and 3 ml of Ropivacaine 0.5% was injected at the right L3 , L4 , and L5 , levels after negative aspiration of CSF and blood and with no paresthesias. Cannulas were retracted while injecting lidocaine 1% until the needle is out. The same procedure was repeated at the level of Left L3, L4, and L5 levels. At the end of the procedure, the skin was cleansed and bandages were applied. COMPLICATIONS: No acute complications. DISPOSITION / PLANS: The patient was placed in a supine position and transferred to the recovery area in a stable condition for observation and was discharged from the recovery room after meeting discharge criteria. Home discharge instructions given to the patient by the staff. The patient was reexamined prior to discharge. The patient will schedule a follow up in the clinic in 2-4 weeks.
[2023-02-08 07:51] VITALS: BP 124/83; PULSE 55; RESP 16
--- NOTE | 2023-02-08 09:08 | FL ---
EXAMINATION TYPE: FL guided pain mgmt statistic DATE OF EXAM: 02/08/2023 FLUOROSCOPY Fluoroscopy time of 15.6 seconds was used during bilateral lumbar facet radiofrequency ablation. 7 i mage/s document/s the procedure. DOSE AREA PRODUCT (DAP) UGY*M,MGY*CM: 0.0405
== END ==
LOC: ORPAIN 06:08
PROVIDERS: ATTEND Specialist
DX: M51.36 Other intervertebral disc degeneration, lumbar region (principal); M47.816 Spondylosis without myelopathy or radiculopathy, lumbar region
CPT/HCPCS: 64636 ×2; 64635; 99152; J2250; J1030; J3010; J2795

== ENCOUNTER → 2023-09-07 | Outpatient (CLI) | payer OTHER ==
[2023-09-07 16:04] LABS: Basophils # (A) 0.05 X 10*3/uL (0.00-0.10); Basophils % (A) 1.2 %; Eosinophils # (A) 0.13 X 10*3/uL (0.04-0.35); Eosinophils % (A) 3.1 %; HCT 44.6 % (39.6-50.0); HGB 14.5 g/dL (13.0-17.0); Immature Grans, Automated 0 %; Lymphocytes # (A) 1.52 X 10*3/uL (0.90-5.00); Lymphocytes % (A) 35.7 %; MCH 29.5 pg (27.0-32.0); MCHC 32.5 g/dL (32.0-37.0); MCV 90.8 FL (80.0-97.0); Mean Platelet Volume 10.1 FL (9.5-12.2); Monocytes # (A) 0.36 X 10*3/uL (0.20-1.00); Monocytes % (A) 8.5 %; NRBC Per 100 WBC 0 X 10*3/uL (0.00-0.01); Neutrophils % (A) 51.5 %; Platelet Count 263 X 10*3/uL (140-440); RBC 4.91 X 10*6/uL (4.40-5.60); RDW 13.6 % (11.5-14.5); WBC 4.26 X 10*3/uL (4.50-10.00)
[2023-09-07 16:21] LABS: ALT 25 U/L (10-49); AST 18 U/L (14-35); Albumin 4.6 g/dL (3.8-4.9); Albumin/Globulin Ratio 1.92 Ratio (1.60-3.17); Alkaline Phosphatase 55 U/L (41-126); Blood Urea Nitrogen 17.4 mg/dL (9.0-27.0); Calcium 9.9 mg/dL (8.7-10.3); Carbon Dioxide 24.9 mmol/L (21.6-31.8); Chloride 105 mmol/L (96-109); Chol/HDL Ratio 4.98 Ratio; Globulin 2.4 g/dL (1.6-3.3); Glucose 108 mg/dL (70-110); LDL Cholesterol,Calculated 205.8 mg/dL (0.0-131.0); Potassium 4.5 mmol/L (3.5-5.5); Prostate Specific Antigen 0.46 ng/mL (0.000-3.500); Sodium 142 mmol/L (135-145); Total Bilirubin 0.6 mg/dL (0.3-1.2); VLDL Calculation 16.36 mg/dL (5.00-40.00)
== END | disposition home or self-care (01) ==
LOC: LABWHC1 08:28
PROVIDERS: ATTEND Family Medicine
DX: Z12.5 Encounter for screening for malignant neoplasm of prostate (principal); E78.2 Mixed hyperlipidemia; E66.9 Obesity, unspecified
CPT/HCPCS: 36415; 80053; 80061; 84153; 85025